=== PATIENT | male | born 1970 | race Caucasian/White ===

== ENCOUNTER 2017-01-23 07:56 | Emergency (ER) | payer SELFPAY ==
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
[2017-01-23 09:14] LABS: BILIRUBIN URINE NEGATIVE (NEGATIVE); BLOOD URINE 50 /UL (NEGATIVE); COLOR URINE YELLOW (YELLOW); GLUCOSE URINE NEGATIVE (NEGATIVE); KETONE URINE NEGATIVE (NEGATIVE); LEUKOCYTES URINE 25 /UL (NEGATIVE); NITRITE URINE NEGATIVE (NEGATIVE); PROTEIN URINE NEGATIVE (NEGATIVE); TURBIDITY URINE CLEAR (CLEAR); UROBILINOGEN URINE 1 mg/dL (NORMAL)
[2017-01-23 09:23] LABS: BACTERIA URINE NEGATIVE (NEGATIVE); EPITHELIAL URINE NEGATIVE #/HPF (NEGATIVE); WBC URINE RARE #/HPF (NEGATIVE)
== END 2017-01-23 10:35 | disposition disaster alternative care site (69) ==
LOC: GMED 07:56
PROVIDERS: Family Medicine
DX: M54.5 Low back pain (principal); Z88.8 Allergy status to other drugs, medicaments and biological substances; Z98.890 Other specified postprocedural states
CPT/HCPCS: J3010

== ENCOUNTER → 2017-01-23 | Outpatient (CLI) | payer SELFPAY | END | disposition disaster alternative care site (69) | LOC: GAMB 07:13 | DX: M54.5 Low back pain (principal) | CPT/HCPCS: A0425; A0427 ==